=== PATIENT | male | born 1955 | race Caucasian/White ===

== ENCOUNTER 2017-04-22 08:17 | Emergency (ER) | payer OTHER ==
--- NOTE | 2017-04-22 08:27 | EDM.PDOC ---
[id number] Complaint: FEVER/DIZZY Time Seen by Provider: 04/22/17 08:24 Source of Information: Reports: Patient History Limitations: Reports: No Limitations - History of Present Illness INITIAL COMMENTS - FREE TEXT/NARRATIVE: History of present illness: []Patient states that he presents with a recurrence of his C. difficile. This will be the fourth episode and symptoms started last night. Been having bowel movements approximately once an hour and vomiting. He is currently not on any antibiotics. He completed antibiotics one week ago for C. difficile. Review of systems: As per history of present illness and below otherwise all systems reviewed and negative. Past medical history: As per history of present illness and as reviewed below otherwise noncontributory. Surgical history: As per history of present illness and as reviewed below otherwise noncontributory. Social history: No reported history of drug or alcohol abuse. Family history: As per history of present illness and as reviewed below otherwise noncontributory. Physical exam: General: Well developed, well nourished in NAD HEENT: Atraumatic, normocephalic, pupils reactive, negative for conjunctival pallor or scleral icterus, mucous membranes moist, throat clear, neck supple, nontender, trachea midline. Lungs: Clear to auscultation, breath sounds equal bilaterally, chest nontender. Heart: S1S2, regular, negative for clicks, rubs, or JVD. Abdomen: Soft, nondistended, nontender. Negative for masses or hepatosplenomegaly. Negative for costovertebral tenderness. Pelvis: Stable nontender. Genitourinary: Deferred. Rectal: Deferred. Extremities: Atraumatic, negative for cords or calf pain. Neurovascular unremarkable. Neuro: Awake, alert, oriented. Cranial nerves II through XII unremarkable. Cerebellum unremarkable. Motor and sensory unremarkable throughout. Exam nonfocal. Diagnostics: [] Labs and stool for C. difficile which is positive Therapeutics: [] Patient was hydrated with 3 L normal saline and Zofran and Motrin for pain Impression: [] C. difficile diarrhea Plan: [] Oral vancomycin 250mg 3 times a day for 14 days. Increase fluids Zofran for nausea/vomiting. Followup with PMD return her symptoms worsen or change Definitive disposition and diagnosis as appropriate pending reevaluation and review of above. abdomen Pain Score (Numeric/FACES): 6 - Related Data Allergies Allergy/AdvReac Type Severity Reaction Status Date / Time acetaminophen Allergy Itching Verified 04/22/17 08:27 [From Darvocet-N] hydrocodone [From Vicodin] Allergy Vomiting Verified 04/22/17 08:27 ibuprofen [From Motrin] Allergy Stomach Verified 04/22/17 08:27 Upset promethazine [From Phenergan] Allergy Hypertensio Verified 04/22/17 08:27 n propoxyphene Allergy Itching Verified 04/22/17 08:27 [From Darvocet-N] ranitidine [From Zantac] Allergy Headache Verified 04/22/17 08:27 Home Meds: Home Meds Aspirin 81 mg PO DAILY 04/22/17 [History] Atenolol 50 mg PO BID 04/22/17 [History] ClonazePAM [KlonoPIN] 1 mg PO DAILY 04/22/17 [History] Escitalopram [Lexapro] 30 mg PO DAILY 04/22/17 [History] Furosemide 20 mg PO DAILY 04/22/17 [History] Lisdexamfetamine Dimesylate [Vyvanse] 20 mg PO DAILY 04/22/17 [History] Ondansetron HCl [Zofran] 4 mg PO Q8HR PRN #12 tablet 04/22/17 [Rx] Quinapril [Accupril] 40 mg PO DAILY 04/22/17 [History] Vancomycin [Vancocin 125 MG/2.5 ML Soln] 125 mg PO QID #1 bottle 04/22/17 [Rx] Vancomycin [Vancocin 125 MG/2.5 ML Soln] 125 mg PO QID 14 Days 04/22/17 [Rx] atorvaSTATin [Lipitor] 20 mg PO BEDTIME 04/22/17 [History] busPIRone [Buspar] 10 mg PO BID 04/22/17 [History] ED ROS GENERAL - Review of Systems Review Of Systems: See Below (See history of present illness) ED EXAM, DIZZINESS - Physical Exam Exam: See Below (See history of present illness) Course - Vital Signs Last Recorded V/S: Last Vital Signs Temp 37.9 C 04/22/17 13:28 Pulse 90 04/22/17 13:28 Resp 14 04/22/17 13:28 BP 122/64 04/22/17 13:28 Pulse Ox 97 04/22/17 13:28 - Orders/Labs/Meds Orders: Active Orders 24 hr Category Date Time Status Cardiac Monitoring [RC] . DIRECTED Care 04/22/17 09:43 Active CULTURE STOOL + CAMPY+SHIGATOX [RM] Stat Lab 04/22/17 09:20 Results Sodium Chloride 0.9% [Saline Flush] Med 04/22/17 08:33 Active 10 ml FLUSH ASDIRECTED PRN Sodium Chloride 0.9% [Saline Flush] Med 04/22/17 08:33 Active 2.5 ml FLUSH ASDIRECTED PRN Saline Lock Insert [OM.PC] Stat Oth 04/22/17 08:32 Ordered Medication Orders Sodium Chloride (Saline Flush) 10 ml FLUSH ASDIRECTED PRN PRN Reason: Keep Vein Open Sodium Chloride (Saline Flush) 2.5 ml FLUSH ASDIRECTED PRN PRN Reason: Keep Vein Open Labs: Laboratory Tests 04/22/17 04/22/17 04/22/17 Range/Units 08:50 08:50 08:50 WBC 6.09 (4.0-11.0) K/uL RBC 4.58 (4.50-5.90) M/uL Hgb 14.3 (13.0-17.0) g/dL Hct 41.0 (38.0-50.0) % MCV 89.5 (80.0-98.0) fL MCH 31.2 (27.0-32.0) pg MCHC 34.9 (31.0-37.0) g/dL RDW Std Deviation 46.5 (28.0-62.0) fl RDW Coeff of King 14 (11.0-15.0) % Plt Count 163 (150-400) K/uL MPV 10.50 (7.40-12.00) fL Add Manual Diff YES Neutrophils % (Manual) 45 L (48.0-80.0) % Band Neutrophils % 22 % Lymphocytes % (Manual) 28 (16.0-40.0) % Monocytes % (Manual) 2 (0.0-15.0) % Basophils % (Manual) 2 H (0.0-1.5) % Metamyelocytes % 1 % Nucleated RBC % 0.0 /100WBC Absolute Seg Neuts 2.7 Band Neutrophils # 1.3 Lymphocytes # (Manual) 1.7 Monocytes # (Manual) 0.1 Basophils # (Manual) 0 Absolute Metamyelocyte 0.1 Nucleated RBCs # 0 K/uL Lactate 1.8 (0.20-2.00) mmol/L Sodium 138 (136-146) mmol/L Potassium 3.5 (3.5-5.1) mmol/L Chloride 104 (98-110) mmol/L Carbon Dioxide 21 (21-31) mmol/L BUN 17 (6.0-23.0) mg/dL Creatinine 1.1 (0.6-1.5) mg/dL Est Cr Clr Drug Dosing 76.06 mL/min Estimated GFR (MDRD) > 60.0 ml/min Glucose 121 H (60-110) mg/dL Calcium 8.8 (8.8-10.8) mg/dL Total Bilirubin 2.4 H (0.1-1.5) mg/dL AST 20 (5-40) IU/L ALT 25 (8-54) IU/L Alkaline Phosphatase 56 (40-150) Total Protein 6.5 (6.0-8.0) g/dL Albumin 3.7 (3.4-4.8) g/dL Globulin 2.8 (2.0-3.5) g/dL Albumin/Globulin Ratio 1.3 (1.3-2.8) Urine Color Urine Appearance Urine pH (5.0-8.0) Ur Specific [place] (1.001-1.035) Urine Protein (NEGATIVE) mg/dL Urine Glucose (UA) (NEGATIVE) mg/dL Urine Ketones (NEGATIVE) mg/dL Urine Occult Blood (NEGATIVE) Urine Nitrite (NEGATIVE) Urine Bilirubin (NEGATIVE) Urine Ictotest Urine Urobilinogen (<2.0) EU/dL Ur Leukocyte Esterase (NEGATIVE) Urine RBC (0-2/HPF) Urine WBC (0-5/HPF) Ur Epithelial Cells (NONE-FEW) Amorphous Sediment (NEGATIVE) Urine Bacteria (NEGATIVE) 04/22/17 Range/Units 09:20 WBC (4.0-11.0) K/uL RBC (4.50-5.90) M/uL Hgb (13.0-17.0) g/dL Hct (38.0-50.0) % MCV (80.0-98.0) fL MCH (27.0-32.0) pg MCHC (31.0-37.0) g/dL RDW Std Deviation (28.0-62.0) fl RDW Coeff of King (11.0-15.0) % Plt Count (150-400) K/uL MPV (7.40-12.00) fL Add Manual Diff Neutrophils % (Manual) (48.0-80.0) % Band Neutrophils % % Lymphocytes % (Manual) (16.0-40.0) % Monocytes % (Manual) (0.0-15.0) % Basophils % (Manual) (0.0-1.5) % Metamyelocytes % % Nucleated RBC % /100WBC Absolute Seg Neuts Band Neutrophils # Lymphocytes # (Manual) Monocytes # (Manual) Basophils # (Manual) Absolute Metamyelocyte Nucleated RBCs # K/uL Lactate (0.20-2.00) mmol/L Sodium (136-146) mmol/L Potassium (3.5-5.1) mmol/L Chloride (98-110) mmol/L Carbon Dioxide (21-31) mmol/L BUN (6.0-23.0) mg/dL Creatinine (0.6-1.5) mg/dL Est Cr Clr Drug Dosing mL/min Estimated GFR (MDRD) ml/min Glucose (60-110) mg/dL Calcium (8.8-10.8) mg/dL Total Bilirubin (0.1-1.5) mg/dL AST (5-40) IU/L ALT (8-54) IU/L Alkaline Phosphatase (40-150) Total Protein (6.0-8.0) g/dL Albumin (3.4-4.8) g/dL Globulin (2.0-3.5) g/dL Albumin/Globulin Ratio (1.3-2.8) Urine Color DARK YELLOW Urine Appearance CLEAR Urine pH 6.0 (5.0-8.0) Ur Specific [place] 1.025 (1.001-1.035) Urine Protein 30 (NEGATIVE) mg/dL Urine Glucose (UA) NEGATIVE (NEGATIVE) mg/dL Urine Ketones NEGATIVE (NEGATIVE) mg/dL Urine Occult Blood NEGATIVE (NEGATIVE) Urine Nitrite NEGATIVE (NEGATIVE) Urine Bilirubin SMALL H (NEGATIVE) Urine Ictotest NEGATIVE Urine Urobilinogen 0.2 (<2.0) EU/dL Ur Leukocyte Esterase NEGATIVE (NEGATIVE) Urine RBC 0-1 (0-2/HPF) Urine WBC 1-2 (0-5/HPF) Ur Epithelial Cells FEW (NONE-FEW) Amorphous Sediment MODERATE (NEGATIVE) Urine Bacteria FEW (NEGATIVE) Meds: Medications Generic Name Dose Route Start Last Admin Trade Name Newton PRN Reason Stop Dose Admin Sodium Chloride 10 ml 04/22/17 08:33 Saline Flush FLUSH ASDIRECTED PRN Keep Vein Open Sodium Chloride 2.5 ml 04/22/17 08:33 Saline Flush FLUSH ASDIRECTED PRN Keep Vein Open Discontinued Medications Generic Name Dose Route Start Last Admin Trade Name Newton PRN Reason Stop Dose Admin Sodium Chloride 2,000 mls @ 999 mls/hr 04/22/17 08:33 04/22/17 09:13 Normal Saline IV 04/22/17 10:33 999 mls/hr .Bolus ONE Administration Sodium Chloride 1,000 mls @ 999 mls/hr 04/22/17 09:46 04/22/17 09:52 Normal Saline IV 04/22/17 10:46 999 mls/hr NOW STA Administration Sodium Chloride 1,000 mls @ 999 mls/hr 04/22/17 11:47 04/22/17 12:05 Normal Saline IV 04/22/17 12:47 999 mls/hr .Bolus ONE Administration Ibuprofen 800 mg 04/22/17 09:36 04/22/17 09:52 Motrin PO 04/22/17 09:37 800 mg ONETIME ONE Administration Ketorolac Tromethamine 30 mg 04/22/17 09:34 04/22/17 09:47 Toradol IVPUSH 04/22/17 09:35 Not Given ONETIME ONE Ondansetron HCl 4 mg 04/22/17 08:33 04/22/17 09:23 Zofran IVPUSH 04/22/17 08:34 4 mg ONETIME ONE Administration Departure - Departure Time of Disposition: 13:47 Disposition: Home, Self-Care 01 Condition: good Clinical Impression: C. difficile diarrhea - Discharge Information Prescriptions: Ondansetron HCl [Zofran] 4 mg PO Q8HR PRN #12 tablet PRN Reason: Nausea Vancomycin [Vancocin 125 MG/2.5 ML Soln] 125 mg PO QID 14 Days Vancomycin [Vancocin 125 MG/2.5 ML Soln] 125 mg PO QID #1 bottle Instructions: Clostridium Difficile FAQs - LUZ Referrals: PCP,None [Primary Care Provider] - Forms: ED Department Discharge Additional Instructions: The following information is given to patients seen in the emergency department who are being discharged to home. This information is to outline your options for follow-up care. We provide all patients seen in our emergency department with a follow-up referral. The need for follow-up, as well as the timing and circumstances, are variable depending upon the specifics of your emergency department visit. If you don't have a primary care physician on staff, we will provide you with a referral. We always advise you to contact your personal physician following an emergency department visit to inform them of the circumstance of the visit and for follow-up with them and/or the need for any referrals to a consulting specialist. The emergency department will also refer you to a specialist when appropriate. This referral assures that you have the opportunity for follow-up care with a specialist. All of these measure are taken in an effort to provide you with optimal care, which includes your follow-up. Under all circumstances we always encourage you to contact your private physician who remains a resource for coordinating your care. When calling for follow-up care, please make the office aware that this follow-up is from your recent emergency room visit. If for any reason you are refused follow-up, please contact the [facility] Emergency Department at and asked to speak to the emergency department charge nurse. Vancomycin 250 mg 3 times a day for 14 days, increase fluids, Zofran for nausea follow with PMD return to ED if symptoms worsen or change [facility] [address] [place] [id number] - My Orders Last 24 Hours: My Active Orders 04/22/17 08:32 Saline Lock Insert [OM.PC] Stat 04/22/17 08:33 Sodium Chloride 0.9% [Saline Flush] 10 ml FLUSH ASDIRECTED PRN Sodium Chloride 0.9% [Saline Flush] 2.5 ml FLUSH ASDIRECTED PRN 04/22/17 09:20 CULTURE STOOL + CAMPY+SHIGATOX [RM] Stat 04/22/17 09:43 Cardiac Monitoring [RC] . DIRECTED - Assessment/Plan Last 24 Hours: My Active Orders 04/22/17 08:32 Saline Lock Insert [OM.PC] Stat 04/22/17 08:33 Sodium Chloride 0.9% [Saline Flush] 10 ml FLUSH ASDIRECTED PRN Sodium Chloride 0.9% [Saline Flush] 2.5 ml FLUSH ASDIRECTED PRN 04/22/17 09:20 CULTURE STOOL + CAMPY+SHIGATOX [RM] Stat 04/22/17 09:43 Cardiac Monitoring [RC] . DIRECTED
[2017-04-22] MEDS ORDERED: Sodium Chloride 0.9% 2.5 ML Syringe FLUSH PRN (08:33)
[2017-04-22] MEDS ORDERED: Ondansetron 4 MG/2 ML SDV IVPUSH ONE (08:33)
[2017-04-22] MEDS ORDERED: Sodium Chloride 0.9% 10 ML Syringe FLUSH PRN (08:33)
[2017-04-22] MEDS ORDERED: Sodium Chloride 0.9% 2,000 ML IV ONE (08:33)
[2017-04-22] MEDS ORDERED: Ketorolac 30 MG/ML SDV IVPUSH ONE (09:34)
[2017-04-22] MEDS ORDERED: Ibuprofen 800 MG Tab PO ONE (09:36)
[2017-04-22 09:40] LABS: CHLORIDE,CL 104 mmol/L (98-110); SODIUM,NA 138 mmol/L (136-146)
[2017-04-22] MEDS ORDERED: Sodium Chloride 0.9% 1,000 ML IV STA (09:46)
[2017-04-22] MEDS ORDERED: Sodium Chloride 0.9% 1,000 ML IV ONE (11:47)
[2017-04-22 19:52] VITALS: BP 104/47
== END 2017-04-22 13:35 | disposition home or self-care (01) ==
LOC: MW.ED 08:17
DX: A04.7 Enterocolitis due to Clostridium difficile (principal); Z79.82 Long term (current) use of aspirin; Z79.899 Other long term (current) drug therapy; Z88.5 Allergy status to narcotic agent; Z88.8 Allergy status to other drugs, medicaments and biological substances
CPT/HCPCS: 36415; 80053; 81001; 83605; 85025; 87046; 87324; 87899; 96361; 96374; 99284; A9270; J2405; J7040